=== PATIENT | male | born 1990 | race Caucasian/White ===

== ENCOUNTER 2017-06-18 16:47 | Emergency (ER) | payer BC ==
[2017-06-18 17:11] VITALS: RESP 16; O2SAT 95
--- NOTE | 2017-06-18 17:44 | EDPHY ---
H & P Stated Complaint: L EFT TESTICULAR PAIN WITH SWELLING SINCE YESTERDAY Time Seen by Provider: 06/18/17 17:20 HPI/ROS: CHIEF COMPLAINT: Left testicular pain HISTORY OF PRESENT ILLNESS: The patient is a 26 y/o male complaining of sudden onset left testicular pain yesterday. He had colonoscopy and upper endoscopy 1 week ago for gastrointestinal pain. This morning he felt a lump on his left testicle. He also noticed that his left testicle is slightly larger than his right. He was seen at the [facility]; they sent him to this ED for an ultrasound. His pain is currently a 7/10. He has also had occasional chills in association with his pain. He is sexually active. Denies penile discharge, STD's , similar history, fever or other pertinent symptoms. REVIEW OF SYSTEMS: A comprehensive 10 point review of systems is otherwise negative aside from elements mentioned in the history of present illness. PMH: Diabetes SOCIAL HISTORY: Student at , lives in [place] PHYSICAL EXAM: Gen: Awake, Alert, No Distress HEENT: Nose: no rhinorrhea Eyes: PERRLA, EOMI Mouth: Moist mucosa Neck: Supple, no JVD Chest: nontender, lungs clear to auscultation Heart: S1, S2 normal, no murmur Abd: Soft, non-tender, no guarding Back: no CVA tenderness, no midline tenderness : swollen and tender left testicle, normal cremasteric Ext: no edema, non-tender Skin: no rash Neuro: CN II-XII intact, Sensation grossly intact, Strength 5/5 in bilateral upper and lower extremities - Personal History Tetanus Vaccine Date: 2014 - Medical/Surgical History Hx Asthma: No Hx Chronic Respiratory Disease: No Hx Diabetes: No Hx Cardiac Disease: No Hx Renal Disease: No Hx Cirrhosis: No Hx Alcoholism: No Hx HIV/AIDS: No Hx Splenectomy or Spleen Trauma: No Other PMH: wisdom teeth, mucoseal removal, left ring finger fx and hardware. - Social History Smoking Status: Light smoker Constitutional: Initial Vital Signs Temperature (C) 37.2 C 06/18/17 17:09 Heart Rate 103 H 06/18/17 17:09 Respiratory Rate 16 06/18/17 17:09 Blood Pressure 133/89 H 06/18/17 17:09 O2 Sat (%) 95 06/18/17 17:09 O2 Delivery Mode Room Air Allergies/Adverse Reactions: No Known Allergies Allergy (Unverified 06/18/17 17:11) Home Medications: Medication Instructions Recorded Doxycycline Hyclate 100 mg PO BID #20 tablet 06/18/17 Medical Decision Making - Diagnostics Imaging Results: Imaging Impressions Testicular Ultrasound 06/18/17 17:03 Impression: 1. Left epididymitis with enlarged heterogenous hypervascular left epididymis. 2. No intratesticular masses or testicular torsion. Findings and recommendations discussed with Emergency Department physician, Dr. Shelley Molina, at 1736 hours on June 18, 2017. Final report concurs with initial preliminary interpretation. Imaging: Discussed imaging studies w/ wall steamer Radiologist, I viewed and interpreted images myself ED Course/Re-evaluation: The patient is a sexually active 26 y/o male presenting with a swollen and tender left testicle. On exam there is no cremasteric. 1703: Dr. Molina spoke with the radiologist; he reports the patient has left epididymitis, no torsion or masses. 1800: Reassessed patient and discussed imaging findings. He will be sent home with Doxycycline. Return precautions provided; patient is comfortable with this plan. Departure - Departure Disposition: Home, Routine, Self-Care Clinical Impression: Epididymitis Condition: Good Instructions: Epididymitis (ED) Additional Instructions: 1. Adult Pain Control: We recommend Acetaminophen (Tylenol) and Ibuprofen (Motrin,Advil) for pain control. When pain is severe, both drugs can be used at the same time, but at different intervals. Please note the time differences. Your dose is: Acetaminophen 650mg every 4 to 6 hours Ibuprofen 400mg every 4-6 hours with food. Note: do not take Acetaminophen with Hydrocodone (Vicodin, Lortab) or Oycodone (Percocet). These medications also contain Acetaminophen. No more than 3000mg of Acetaminophen should be taken in 24 hours (for an adult). 2. Take Doxycycline as prescribed. Continue to take this medication for the entire course, even if your symptoms improved. 3. Follow up with [facility] in 1 week. 4. Return to the ED if you experience numbness, tingling, urinary changes or other worsening of your symptoms. Referrals: [facility],NO SPECIFIC [Other] - As per Instructions Prescriptions: Doxycycline Hyclate 100 mg PO BID #20 tablet Report Scribed for: Masoud Weaver Report Scribed by: Maricel Mccloud Date of Report: 06/18/17 Time of Report: 17:43
[2017-06-18] MEDS ORDERED: CEFTRIAXONE IM 350 MG/ML SYRINGE IM ONE (18:02)
[2017-06-18] MEDS ORDERED: DOXYCYCLINE HYCLATE 100 MG CAP/TAB PO ONE (18:02)
[2017-06-18 18:25] VITALS: BP 129/94; PULSE 97; TEMP 98.2
== END 2017-06-18 19:14 | disposition home or self-care (01) ==
DX: N45.1 Epididymitis (principal); E11.9 Type 2 diabetes mellitus without complications; F17.200 Nicotine dependence, unspecified, uncomplicated
CPT/HCPCS: J0696